=== PATIENT | male | born 1960 | race Caucasian/White ===

== ENCOUNTER 2018-08-02 14:53 | Emergency (ER) | payer BC ==
[~2018-08-02] VITALS: Ht 172.7 cm; Wt 80.0 kg
[~2018-08-02 14:53] MED LIST: NO HOME MEDS
[2018-08-02 16:10] LABS: HEMATOCRIT 44.5 % (39.0-50.0); HEMOGLOBIN 14.8 g/dl (14.0-18.0); IMMATURE GRANULOCYTES 0.4 % (0.0-5.0); MEAN CELL VOLUME 86.9 fL CALC (80.0-100.0); MEAN CORPUSCULAR HGB 28.9 pG CALC (26.0-32.0); MEAN CORPUSCULAR HGB CONC 33.3 g/L CALC (32.0-36.0); NEUT# 6.59 thou/uL (1.82-7.42); RED BLOOD COUNT 5.12 mill/uL (4.70-6.10); RED CELL DISTRI WIDTH 15.9 % (11.5-15.5)
[2018-08-02 16:28] LABS: ANION GAP 11 (6-22 (CALC)); BUN 20 mg/dL (9-20); CHLORIDE 105 mmol/l (95-108); SODIUM 141 mmol/l (137-146)
[2018-08-02 16:31] LABS: BUN/CREATININE RATIO 25 (12-20 (CALC)); CARBON DIOXIDE 29 mmol/l (22-30); CREATININE 0.8 mg/dL (0.7-1.3); GFR > 60 ML/MIN (>=60 (CALC)); GFR FOR AFR.AMER. > 60 ML/MIN (>=60 (CALC))
[2018-08-02] MEDS ORDERED: MECLIZINE25 MG PO (16:52)
[2018-08-02 17:02] VITALS: BP 143/82
== END 2018-08-02 17:02 | disposition home or self-care (01) | DRG 149 ==
LOC: ED 14:53
PROVIDERS: Family Medicine
DX: R42 Dizziness and giddiness (principal); F17.210 Nicotine dependence, cigarettes, uncomplicated

== ENCOUNTER 2024-11-30 14:34 | Emergency (ER) | payer OTHER ==
[2024-11-30] VITALS (9 sets, daily range): BP systolic 149–186; BP diastolic 76–107
[~2024-11-30] VITALS: Ht 172.7 cm; Wt 70.3 kg
[~2024-11-30 14:34] MED LIST changes: +MECLIZINE25 MG PO
[2024-11-30 16:32] LABS: BASO% 0.3 % (0-3); EOS% 0.2 % (0-8); HEMATOCRIT 42.9 % (39.0-50.0); IMMATURE GRANULOCYTES 0.2 % (0.0-5.0); LYMPH% 9.4 % (15-41); MEAN CORPUSCULAR HGB 25.4 pG CALC (26.0-32.0); MEAN CORPUSCULAR HGB CONC 30.3 g/dL CAL (32.0-36.0); MONO% 9.5 % (2-13); NEUT# 7.02 thou/uL (1.82-7.42); NEUT% 80.4 % (42-76); RED BLOOD COUNT 5.11 mill/uL (4.70-6.10); RED CELL DISTRI WIDTH 15.9 % (11.5-15.5)
[2024-11-30 16:40] LABS: CREATININE 0.8 mg/dL (0.7-1.3); POTASSIUM 4.5 mmol/l (3.5-5.1)
[2024-11-30 16:41] LABS: ALBUMIN 4.4 g/dL (3.2-5.0); BILIRUBIN, TOTAL 0.9 mg/dL (0.2-1.3); TOTAL PROTEIN 8.4 g/dL (6.3-8.2)
[2024-11-30] MEDS ORDERED: LABETALOL HCL 20 MG/ 4 ML CARTRG IV ONE (17:10)
[2024-11-30] MEDS ORDERED: Iopamidol 370 (Isovue) 76% 100 ML SDV IV ONE (17:10)
[2024-11-30] MEDS ORDERED: cloNIDine HCL 0.1 MG/TAB PO ONE (17:15)
[2024-11-30] MEDS ORDERED: ONDANSETRON HCl 4 MG/2 ML SDV IV ONE (18:05)
[2024-11-30] MEDS ORDERED: PROVENTIL0.083 % IN (18:57)
[2024-11-30] MEDS ORDERED: VENTOLIN HFA108 MCG (18:58)
[2024-11-30] MEDS ORDERED: ANORO ELLIPTA 61 AER IN (18:59)
[2024-11-30] MEDS ORDERED: ACETAMINOPHEN 325 MG/TAB PO ONE (20:00)
[2024-11-30] MEDS ORDERED: PREDNISONE20 MG PO (20:31)
== END 2024-11-30 20:15 | disposition home or self-care (01) | DRG 192 ==
LOC: ED 14:34
PROVIDERS: Emergency Medicine
DX: J44.9 Chronic obstructive pulmonary disease, unspecified (principal); F17.200 Nicotine dependence, unspecified, uncomplicated; Z20.822 Contact with and (suspected) exposure to COVID-19
CPT/HCPCS: J2405; Q9967